=== PATIENT | male | born 1970 | race Two or more races ===

== ENCOUNTER 2024-07-02 15:33 | Emergency (ER) | payer OTHER ==
[~2024-07-02] VITALS: Ht 175.3 cm; Wt 145.1 kg
[2024-07-02] MEDS ORDERED: HUMULIN R100 UNIT/1 (15:48)
[2024-07-02] MEDS ORDERED: KETOROLAC TROMETHAMINE 30 MG VIAL IM ONE (16:30)
[2024-07-02] MEDS ORDERED: KETOROLAC TROMETHAMINE 30 MG VIAL ONE (16:33)
== END 2024-07-02 19:44 | disposition home or self-care (01) ==
LOC: ER 15:33
DX: S89.82XA Other specified injuries of left lower leg, initial encounter (principal); W10.0XXA Fall (on)(from) escalator, initial encounter; Y93.89 Activity, other specified; Y92.89 Other specified places as the place of occurrence of the external cause; Z88.0 Allergy status to penicillin; E11.9 Type 2 diabetes mellitus without complications; Z79.4 Long term (current) use of insulin
CPT/HCPCS: 73560; 96372; 99283; J1885